=== PATIENT | male | born 2000 | race African-American/Black ===

== ENCOUNTER 2018-05-13 03:35 | Emergency (ER) | payer SELFPAY ==
[~2018-05-13] VITALS: Ht 170.2 cm; Wt 63.3 kg
[2018-05-13 04:02] VITALS: BP 128/65
[2018-05-13] MEDS ORDERED: HYDROCODONE/ACETAMINOPHEN 5/325MG TABLET PO ONE (06:45)
== END 2018-05-13 06:56 | disposition home or self-care (01) ==
LOC: ER 03:44
DX: K08.89 Other specified disorders of teeth and supporting structures (principal); R56.9 Unspecified convulsions
CPT/HCPCS: 99283

== ENCOUNTER 2019-03-23 17:39 | Emergency (ER) | payer MEDICAID ==
[~2019-03-23] VITALS: Ht 170.2 cm; Wt 64.0 kg
[2019-03-23 18:00] VITALS: BP 123/76
== END 2019-03-23 21:50 | disposition left against medical advice (07) ==
LOC: ER 20:48
DX: Z53.21 Procedure and treatment not carried out due to patient leaving prior to being seen by health care provider (principal)

== ENCOUNTER 2019-09-25 13:02 | Emergency (ER) | payer MEDICAID ==
[~2019-09-25] VITALS: Ht 170.2 cm; Wt 65.0 kg
[2019-09-25 13:08] VITALS: BP 124/75
[2019-09-25] MEDS ORDERED: BACITRACIN ZINC OINT UDPKT TOP ONE (15:15)
== END 2019-09-25 15:44 | disposition home or self-care (01) ==
LOC: ER 13:02
DX: S61.212A Laceration without foreign body of right middle finger without damage to nail, initial encounter (principal); W26.8XXA Contact with other sharp object(s), not elsewhere classified, initial encounter; Y93.89 Activity, other specified; Y92.89 Other specified places as the place of occurrence of the external cause; Y99.8 Other external cause status; F17.290 Nicotine dependence, other tobacco product, uncomplicated; F12.10 Cannabis abuse, uncomplicated
CPT/HCPCS: 99282

== ENCOUNTER 2020-11-11 01:47 | Emergency (ER) | payer MEDICAID ==
[~2020-11-11] VITALS: Ht 170.2 cm; Wt 76.1 kg
[2020-11-11 02:14] VITALS: BP 130/74
[2020-11-11] MEDS ORDERED: OXYMETAZOLINE HCL NASAL SPRAY 15ML LEFTNSTRL STA (02:17)
== END 2020-11-11 03:34 | disposition home or self-care (01) ==
LOC: ER 01:47
DX: R04.0 Epistaxis (principal); F12.10 Cannabis abuse, uncomplicated
CPT/HCPCS: 99282

== ENCOUNTER 2021-11-26 10:47 | Emergency (ER) | payer MEDICAID ==
[~2021-11-26] VITALS: Ht 170.2 cm; Wt 76.0 kg
[2021-11-26] MEDS ORDERED: IBUPROFEN 800MG TABLET PO ONE (11:00)
[2021-11-26] MEDS ORDERED: IBUP-2029 MT (12:10)
[2021-11-26 12:59] VITALS: BP 115/73
== END 2021-11-26 13:00 | disposition home or self-care (01) ==
LOC: ER 10:47
DX: S60.032A Contusion of left middle finger without damage to nail, initial encounter (principal); X58.XXXA Exposure to other specified factors, initial encounter; Y93.89 Activity, other specified; Y92.89 Other specified places as the place of occurrence of the external cause; Y99.8 Other external cause status
CPT/HCPCS: 73140; 99283